=== PATIENT | male | born 1935 | race Caucasian/White ===

== ENCOUNTER 2016-06-03 08:46 | Day surgery (SDC) | payer MEDICARE, MEDICAID ==
[~2016-06-03] VITALS: Ht 172.7 cm; Wt 110.0 kg
== END 2016-06-03 14:20 | disposition home or self-care (01) ==
LOC: SSS 08:46
PROC: B02BYZZ Computerized Tomography (CT Scan) of Spinal Cord using Other Contrast (ICD-10-PCS; principal; 2016-06-03)
DX: M51.36 Other intervertebral disc degeneration, lumbar region (principal); M48.06 Spinal stenosis, lumbar region; M51.27 Other intervertebral disc displacement, lumbosacral region; M43.17 Spondylolisthesis, lumbosacral region; M47.816 Spondylosis without myelopathy or radiculopathy, lumbar region; Z79.899 Other long term (current) drug therapy; Z79.891 Long term (current) use of opiate analgesic